=== PATIENT | female | born 1930 | race Caucasian/White ===

== ENCOUNTER → 2018-02-27 | Outpatient (CLI) | payer OTHER | LOC: CIMAGING 14:36 | PROVIDERS: ATTEND Family Medicine | DX: S62.647A Nondisplaced fracture of proximal phalanx of left little finger, initial encounter for closed fracture (principal) | CPT/HCPCS: 73130-PO ==

== ENCOUNTER 2018-05-19 19:34 | Emergency (ER) | payer OTHER ==
--- NOTE | 2018-05-19 19:57 | EDPHY ---
H & P Stated Complaint: c/o NAM after work out day - went to told 189/95 sent here for work up Time Seen by Provider: 05/19/18 19:51 HPI/ROS: CHIEF COMPLAINT: Hypertension, headache HISTORY OF PRESENT ILLNESS: The patient is an 88-year-old female who comes to the emergency department complaining high blood pressure of 180/100. Also headache. She states that she was in a hurry to get to her exercise class this morning and is not sure if she took her antihypertensives. After the class she developed a headache that is gradually worsened throughout the day. It was not thunderclap in onset. She has not had a fever. She denies trauma. She does not take any blood thinners. 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 She has not yet taken her evening antihypertensives. She presented to an urgent care who recommended she come to the ER. She denies chest pain or shortness of breath. No lightheadedness or dizziness. No focal weakness, paresthesias or deficits. No slurred speech or difficulty thinking. No nausea vomiting. Severity: Moderate Modifying factors: None REVIEW OF SYSTEMS: Constitutional: denies: chills, fever, recent illness, recent injury EENTM: denies: blurred vision, double vision, nose congestion Respiratory: denies: cough, shortness of breath Cardiac: denies: chest pain, irregular heart rate, lightheadedness, palpitations Gastrointestinal/Abdominal: denies: abdominal pain, diarrhea, nausea, vomiting, blood streaked stools Genitourinary: denies: dysuria, frequency, hematuria, pain Musculoskeletal: denies: joint pain, muscle pain Skin: denies: lesions, rash, jaundice, bruising Neurological: See HPI denies: numbness, paresthesia, tingling, dizziness, weakness Hematologic/Lymphatic: denies: blood clots, easy bleeding, easy bruising Immunologic/allergic: denies: HIV/AIDS, transplant 10 systems reviewed and negative except as noted EXAM: GENERAL: Well-appearing, well-nourished and in no acute distress. HEAD: Atraumatic, normocephalic. EYES: Pupils equal round and reactive to light, extraocular movements intact, sclera anicteric, conjunctiva are normal. ENT: TMs normal, nares patent, oropharynx clear without exudates. Moist mucous membranes. NECK: Normal range of motion, supple without lymphadenopathy or JVD. LUNGS: Breath sounds clear to auscultation bilaterally and equal. No wheezes rales or rhonchi. HEART: Regular rate and rhythm without murmurs, rubs or gallops. ABDOMEN: Soft, nontender, normoactive bowel sounds. No guarding, no rebound. No masses appreciated. BACK: No CVA tenderness, no spinal tenderness, step-offs or deformities EXTREMITIES: Normal range of motion, no pitting or edema. No clubbing or cyanosis. NEUROLOGICAL: Cranial nerves II through XII grossly intact. Normal speech, normal gait. 5/5 strength, normal movement in all extremities, normal sensation , normal reflexes PSYCH: Normal mood, normal affect. SKIN: Warm, dry, normal turgor, no visible rashes or lesions. Source: Patient, Family Exam Limitations: No limitations - Personal History Current Tetanus Diphtheria and Acellular Pertussis (TDAP): Yes - Medical/Surgical History Hx Asthma: No Hx Chronic Respiratory Disease: No Hx Diabetes: No Hx Cardiac Disease: Yes Hx Renal Disease: No Hx Cirrhosis: No Hx Alcoholism: No Hx HIV/AIDS: No Hx Splenectomy or Spleen Trauma: No Other PMH: cardiac stent, HTN, renal stent - Family History Significant Family History: No pertinent family hx - Social History Smoking Status: Never smoked Alcohol Use: None Constitutional: Initial Vital Signs Temperature (C) 37.2 C 05/19/18 19:39 Heart Rate 61 05/19/18 19:39 Respiratory Rate 18 05/19/18 19:39 Blood Pressure 206/69 H 05/19/18 19:39 O2 Sat (%) 95 05/19/18 19:39 O2 Delivery Mode Room Air Allergies/Adverse Reactions: amoxicillin [From Augmentin] Allergy (Verified 05/19/18 19:38) clavulanic acid [From Augmentin] Allergy (Verified 05/19/18 19:38) morphine Allergy (Verified 10/11/17 15:15) Home Medications: Medication Instructions Recorded Amlodipine Besylate 10/11/17 Atenolol 10/11/17 Citalopram 10/11/17 Esomeprazole Mag Trihydrate 10/11/17 Fluticasone Nasal 10/11/17 hydrALAZINE 10/11/17 Medical Decision Making - Diagnostics Imaging Results: Imaging Impressions Head CT 05/19/18 19:58 Impression: 1. Moderate atrophy. 2. No acute hemorrhage, hydrocephalus, or mass effect. 3. Cerebrovascular atherosclerosis. 4. No definite acute infarct. 5. Severe microvascular ischemic gliosis. 6. Consider MRI of the brain, if there is continued clinical concern. Findings and recommendations discussed with Emergency Department physician, IAN AWAN at 20:16 hour, 05/19/2018. Final report concurs with initial preliminary interpretation. Imaging: Discussed imaging studies w/ aviation consultant Radiologist ED Course/Re-evaluation: I will give the patient her evening doses of amlodipine and hydralazine and observed. Will also obtain head CT for headache and treat with ibuprofen. She denies chest pain or shortness of breath. We had a long discussion about high blood pressure and that it is most often the results with the cause of symptoms. 8:40 p.m. we discussed patient's CT results. Patient's blood pressure down to 170/90. Headache is completely gone. Declines further workup. We will continue to observe. 9:00 p.m. Patient's blood pressure is 165/75. She feels completely well. She will go home and take hydralazine. We did not have it here. She will continue her regular regimen tomorrow to track her blood pressures and follow up with her primary doctor for further management. She again declines further testing. She and her daughter feel reassured. Differential Diagnosis: Partial list of the Differential diagnosis considered include but were not limited to; anxiety, hypertension, headache and although unlikely based on the history and physical exam, I also considered hemorrhage, CVA, trauma. I discussed these differential diagnoses and the plan with the patient as well as the usual and expected course. The patient understands that the diagnosis is provisional and that in medicine we are not always correct and that further workup is often warranted. Usual and customary warnings were given. All of the patient's questions were answered. The patient was instructed to return to the emergency department should the symptoms at all worsen or return, otherwise to followup with the physician as we discussed. - Data Points Medications Given: Discontinued Medications Amlodipine Besylate (Norvasc) 5 mg PO EDNOW ONE Stop: 05/19/18 20:00 Last Admin: 05/19/18 20:15 Dose: 5 mg Hydralazine HCl (Apresoline) 50 mg PO EDNOW ONE Stop: 05/19/18 19:54 Last Admin: 05/19/18 20:16 Dose: Not Given Ibuprofen (Motrin) 400 mg PO EDNOW ONE Stop: 05/19/18 20:04 Last Admin: 05/19/18 20:14 Dose: 400 mg Metoclopramide HCl (Reglan Injection) 10 mg IVP EDNOW ONE Stop: 05/19/18 20:03 Last Admin: 05/19/18 20:16 Dose: Not Given Departure - Departure Disposition: Home, Routine, Self-Care Clinical Impression: Headache Qualifiers: Headache type: unspecified Headache chronicity pattern: acute headache Intractability: not intractable Qualified Code(s): R51 - Headache Hypertension Qualifiers: Hypertension type: unspecified Qualified Code(s): I10 - Essential (primary) hypertension Condition: Fair Instructions: Acute Headache (ED), Hypertension (ED) Referrals: Lory Ramsey, [Primary Care Provider] - As per Instructions
[2018-05-19] MEDS ORDERED: amLODIPine BESYLATE 5 MG TAB PO ONE (19:59)
[2018-05-19] MEDS ORDERED: ATENOLOL 50 MG TAB PO SCH (20:00)
[2018-05-19] MEDS ORDERED: METOCLOPRAMIDE 10 MG/2 ML VIAL IVP ONE (20:02)
[2018-05-19] MEDS ORDERED: IBUPROFEN 200 MG TAB PO ONE (20:03)
[2018-05-19] MEDS ORDERED: METOCLOPRAMIDE 10 MG TAB ONE (20:08)
[2018-05-19 21:17] VITALS: BP 153/75
== END 2018-05-19 21:16 | disposition home or self-care (01) ==
LOC: CED 19:34
DX: R51 Headache (principal); I10 Essential (primary) hypertension; Z95.5 Presence of coronary angioplasty implant and graft; Z96.0 Presence of urogenital implants; Z88.0 Allergy status to penicillin
CPT/HCPCS: 70450-PO; 99284-ER